=== PATIENT | male | born 1975 | race Caucasian/White ===

== ENCOUNTER → 2020-12-21 13:57 | Outpatient (CLI) | payer OTHER, SELFPAY ==
--- NOTE | 2020-12-21 14:06 | DI.MRI.S_ITS ---
PROCEDURE: MR ELBOW LT W CON INDICATIONS: Strain of muscle, fascia and tendon of other parts TECHNIQUE: Noncontrast coronal proton density fast spin echo and T2 fast spin echo with fat saturation, axial and sagittal T1 spin echo and T2 fast spin echo with fat saturation through the elbow. COMPARISON: None. FINDINGS: Image quality: Excellent. Lateral structures: The lateral ulnar collateral ligament and radial collateral ligament both appear intact. The overlying common extensor tendon appears mildly thickened with T2 hyperintense signal change. Medial structures: The ulnar collateral ligament is not well seen in keeping with rupture. There is associated heterogeneous signal and edema in its expected location. The overlying common flexor tendon appears mildly thickened with T2 hyperintense signal changes. The ulnar nerve appears normal in size and signal within the cubital tunnel. Anterior structures: Brachialis tendon appears intact. There is complete rupture of the biceps tendon which is retracted approximately 8.9 cm cephalad to the radial attachment. There is extensive adjacent fluid and soft tissue edema. There is also circumferential subcutaneous cellulitis. The median and radial neurovascular bundles appear normal; no focal muscle atrophy to suggest nerve impingement. Posterior structures: The conjoint triceps tendon from the long and lateral heads appears intact. The medial head of the triceps tendon also appears normal, with direct muscle insertion onto the olecranon. No olecranon bursal fluid. Bone and cartilage: No bone marrow contusions or fractures. No osteochondral injuries. IMPRESSION: Complete rupture of the biceps tendon with marked cephalad retraction of the tendon stump as detailed above. Rupture of the ulnar collateral ligament Tendinopathy involving the common extensor and flexor tendons raising the possibility of medial and lateral epicondylitis syndrome although this finding is technically age indeterminate. Dictated by: Herberth Villeda M.D. on 12/21/2020 at 16:20 Approved by: Herberth Villeda M.D. on 12/21/2020 at 16:26
== END ==
PROVIDERS: Referring Provider Orthopaedic Surgery; Visit Provider Orthopaedic Surgery
DX: S46.212A Strain of muscle, fascia and tendon of other parts of biceps, left arm, initial encounter (principal); S53.32XA Traumatic rupture of left ulnar collateral ligament, initial encounter; X58.XXXA Exposure to other specified factors, initial encounter
CPT/HCPCS: 73221

== ENCOUNTER 2023-11-24 08:15 | Emergency (ER) | payer BC, SELFPAY ==
[2023-11-24] VITALS (7 sets, daily range): BP systolic 164–197; BP diastolic 90–106; PULSE 85–115; RESP 16; TEMP 36.9; O2SAT 95–99; BMI 30.8
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
--- NOTE | 2023-11-24 08:29 | DI.CT.S_ITS ---
PROCEDURE: CT KIDNEY URETER BLADDER (KUB) INDICATIONS: right flank/back pain chronic but wors, hx L nephrect for ca TECHNIQUE: Axial sections were acquired from the lung bases to the pubic symphysis. Coronal and sagittal reformats were performed. For radiation dose reduction, the following was used: automated exposure control, adjustment of mA and/or kV according to patient size. COMPARISON: None. FINDINGS: Image quality: Diagnostic. Lower Chest: No significant findings. URINARY: Right Kidney: No stones or hydronephrosis. Right Ureter: No hydroureter. Left Kidney: Absent. Bladder: Normal wall thickness. No stones. ABDOMEN: Liver: No contour-deforming solid mass. Gallbladder: No radiopaque gallstones or wall thickening. Biliary ducts: No biliary dilation. Pancreas: No ductal dilation. Spleen: Size is within normal limits. Adrenal Glands: No adrenal nodules. Stomach and Bowel: Normal colonic caliber, without significant wall thickening. Colonic diverticulosis without evidence of diverticulitis. Normal appendix. Peritoneum: No abnormal intraperitoneal fluid. No free air. Ventral Wall: No hernia. Abdominal Nodes: No enlarged retroperitoneal or mesenteric lymph nodes. Vessels: Aorta and inferior vena cava are normal in size. PELVIS: Pelvic Organs: Unremarkable. Pelvic Nodes: Unremarkable. Miscellaneous: No inguinal hernias are seen. Bones: Degenerative disc disease of the lumbar spine. Transitional L5 vertebrae. IMPRESSION: No obstructing stones or hydronephrosis. Left nephrectomy. Normal appendix. Colonic diverticulosis without evidence of diverticulitis. Normal gallbladder. Dictated by: Antwon Shukla M.D. on 11/24/2023 at 8:53 Approved by: Antwon Shukla M.D. on 11/24/2023 at 8:56
[2023-11-24 08:42] LABS: Add Manual Diff / Slide Review NO; Basophils Absolute Auto 200 /uL (0-100); Basophils Percent Auto 1.6 % (0-2); Eosinophils Absolute Auto 500 /uL (0-450); Eosinophils Percent Auto 4.2 % (2-4); Hematocrit 50.7 % (41-53); Hemoglobin 17.2 g/dL (13.5-17.5); Lymphocytes Absolute Auto 2800 /uL (1100-4500); Lymphocytes Percent Auto 23.4 % (25-40); Mean Corpuscular Hemoglobin 29.1 PG (26-34); Mean Corpuscular Volume 85.7 fL (80-100); Monocytes Absolute Auto 700 /uL (0-900); Monocytes Percent Auto 5.6 % (3-14); Neutrophils Absolute Auto 7700 /uL (1500-7000); Neutrophils Percent Auto 65.2 % (50-75); Platelet Count 354 X10^3/uL (150-400); Red Blood Cell Count 5.92 X10^6/uL (4.5-5.9); Red Cell Distribution Width 14.8 % (11.6-14.8); White Blood Cell Count 11.8 X10^3/uL (4.5-11.0)
[2023-11-24 08:53] LABS: Alanine Aminotransferase 63 IU/L (<50); Albumin 4.6 g/dL (3.5-5.0); Albumin Globulin Ratio 1.5 (1.0-2.8); Alkaline Phosphatase 36 U/L (38-126); Aspartate Aminotransferase 62 IU/L (17-59); BUN Creatinine Ratio 8.8 (6-22); Bilirubin Total 1.1 mg/dL (0.2-1.3); Blood Urea Nitrogen 15 mg/dL (9-20); Calcium 9.3 mg/dL (8.4-10.2); Carbon Dioxide 23 mmol/L (22-32); Chloride 108 mmol/L (98-107); Estimated Glomerular Filt Rate 49 mL/min (>60); Glucose 115 mg/dL (70-100); HEMOLYSIS 36 (0-50); Lipase 166 U/L (23-300); Potassium 5.1 mmol/L (3.4-5.1); Sodium 138 mmol/L (137-145); Total Protein 7.6 g/dL (6.3-8.2)
[2023-11-24 09:19] LABS: Urine Volume 10mL (spun)
[2023-11-24 09:21] LABS: Bacteria Urine Occasional (0-1); Culture Indicated Urine Cult Not Indicated; RBC Urine 1-5/HPF (0-5/HPF); Squamous Epithelial Cell Urine 0-1 /HPF (0-5/HPF); WBC Urine 0-1/HPF (0-5/HPF)
== END 2023-11-24 09:50 | disposition home or self-care (01) ==
PROVIDERS: Emergency Provider Emergency Medicine
DX: M54.50 Low back pain, unspecified (principal); R79.89 Other specified abnormal findings of blood chemistry
CPT/HCPCS: 36415; 74176; 80053; 81003; 81015; 83690; 85025; 99284

== ENCOUNTER 2024-07-15 11:42 | Emergency (ER) | payer BC, SELFPAY ==
[2024-07-15] VITALS (8 sets, daily range): BP systolic 133–148; BP diastolic 78–94; PULSE 76–95; RESP 14–18; TEMP 36.9; O2SAT 95–98; BMI 31.5
--- NOTE | 2024-07-15 11:58 | EKG_ITS ---
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
[2024-07-15] MEDS: PANTOPRAZOLE 40 MG VIAL 80 MG IV (12:14)
[2024-07-15 12:17] LABS: Add Manual Diff / Slide Review NO; Basophils Absolute Auto 200 /uL (0-100); Basophils Percent Auto 1.7 % (0-2); Eosinophils Absolute Auto 200 /uL (0-450); Eosinophils Percent Auto 2.2 % (2-4); Hematocrit 46.2 % (41-53); Hemoglobin 15.8 g/dL (13.5-17.5); Lymphocytes Absolute Auto 2300 /uL (1100-4500); Mean Corpuscular HGB Conc 34.1 % (30-36); Monocytes Absolute Auto 700 /uL (0-900); Monocytes Percent Auto 6.5 % (3-14); Neutrophils Absolute Auto 7600 /uL (1500-7000); Neutrophils Percent Auto 68.6 % (50-75); Platelet Count 340 X10^3/uL (150-400); Red Blood Cell Count 5.44 X10^6/uL (4.5-5.9); Red Cell Distribution Width 14.1 % (11.6-14.8)
--- NOTE | 2024-07-15 12:20 | ED.GIBLEED ---
HPI - GI Bleed General Chief complaint: GI Bleed Stated complaint: per patient bleeding internally after procedure Time Seen by Provider: 07/15/24 12:06 Source: patient Mode of arrival: Ambulatory History of Present Illness HPI Narrative: Patient here with [place]. Patient has had rectal bleeding since his colonoscopy at [facility] yesterday. Had his 1st colonoscopy yesterday. He states there were polyps removed. After procedure yesterday did notice some blood in the bowel movements. However he continued to have more blood in bowel movements since then. No dizziness no syncope no shortness a breath. Denies abdominal pain. Patient is not on any blood thinners or ibuprofen or aspirin. Related Data Previous Rx's Medication Instructions Recorded cyclobenzaprine 10 mg tablet 10 mg PO TID PRN muscle spasm #10 11/24/23 tabs Allergies Allergy/AdvReac Type Severity Reaction Status Date / Time No Known Drug Allergies Allergy Verified 11/24/23 09:10 Review of Systems Review of Systems Narrative: GENERAL: Negative chills, fatigue, malaise, fever, sweats. HEENT: Negative sinus pain, ear pain, sore throat RESPIRATORY: Negative dyspnea, cough CARDIOVASCULAR: Negative chest pain, palpitations GASTROINTESTINAL: Negative vomiting, nausea, abdominal pain, positive GI bleed : Negative dysuria, frequency, hematuria MUSCULOSKELETAL: Negative muscle or bony pain SKIN: Negative rash, skin lesions NEUROLOGIC: Negative weakness, numbness PSYCH: Positive anxiety ROS Unobtainable: All systems reviewed & are unremarkable except as noted in HPI and below Patient History Social History Smoking Status: Current every day smoker Smoking Status: Current every day smoker tobacco type: cigarettes alcohol intake frequency: a few times a week Exam Narrative Exam Narrative: GENERAL: in no distress, not toxic not dyspneic HEAD: Normocephalic. EYES: Pupils equal round inked conjunctiva ENT: Mucous membranes moist. NECK: Trachea midline. CARDIOVASCULAR: Regular rate and rhythm brisk cap refills on the fingers. RESPIRATORY: Clear to auscultation. Breath sounds equal bilaterally. No wheezes, rales, or rhonchi. GASTROINTESTINAL: Abdomen soft, non-tender, abdomen is soft flat nontender no peritoneal signs no guarding no rebound. No pain out of portion exam. Bowel sounds are present.. Patient denies any active bleeding at this time. We will hold on rectal exam at this time. EXTREMITIES: No gross deformities. BACK: No flank tenderness. NEURO: AOx4. Clear speech SKIN: Warm and dry skin is warm soft and pink. No pallor. PSYCH: Not anxious, is cooperative Initial Vital Signs Initial Vital Signs: Vital Signs Temperature 98.4 F 07/15/24 11:49 Pulse Rate 92 H 07/15/24 11:49 Respiratory Rate 14 07/15/24 11:49 Blood Pressure 148/91 H 07/15/24 11:49 Pulse Oximetry 98 07/15/24 11:49 Oxygen Delivery Method Room Air 07/15/24 11:49 Course Orders Ordered: Discontinued Medications Sodium Chloride (Normal Saline 0.9%) 500 mls @ 1,000 mls/hr IV BOLUS ONE Stop: 07/15/24 12:48 Last Infusion: 07/15/24 13:34 Dose: Infused Documented By: Admin: 07/15/24 12:40 Dose: 1,000 mls/hr Documented By: TYLOR Lorazepam (Lorazepam 2 Mg/Ml Inj) 1 mg IV NOW ONE Stop: 07/15/24 12:22 Last Admin: 07/15/24 12:39 Dose: 1 mg Documented By: TYLOR Ondansetron HCl (Ondansetron 4 Mg/2 Ml Inj) 4 mg IV NOW PRN PRN Reason: Nausea And Vomiting Ondansetron HCl (Ondansetron 4 Mg Odt) 4 mg SL NOW PRN PRN Reason: Nausea And Vomiting Pantoprazole Sodium (Pantoprazole 40 Mg Vial) 80 mg IV NOW ONE Stop: 07/15/24 11:52 Last Admin: 07/15/24 12:14 Dose: 80 mg Documented By: TYLOR Vital Signs Vital signs: Vital Signs - 8 hr 07/15/24 11:49 07/15/24 12:02 07/15/24 12:02 Temperature 98.4 F Pulse Rate 92 H 95 H Respiratory Rate 14 Blood Pressure 148/91 H 133/94 H Pulse Oximetry 98 95 Oxygen Delivery Method Room Air 07/15/24 12:30 07/15/24 12:30 07/15/24 13:00 Temperature Pulse Rate 86 83 Respiratory Rate 17 Blood Pressure 136/83 Pulse Oximetry 97 97 Oxygen Delivery Method 07/15/24 13:02 07/15/24 13:02 Temperature Pulse Rate 83 Respiratory Rate Blood Pressure 143/78 H Pulse Oximetry 98 Oxygen Delivery Method Room Air MDM - GI Bleed Lab Data 07/15/24 12:01 07/15/24 12:01 Labs: Lab Results 07/15/24 Range/Units 12:01 WBC 11.0 (4.5-11.0) X10^3/uL RBC 5.44 (4.5-5.9) X10^6/uL Hgb 15.8 (13.5-17.5) g/dL Hct 46.2 (41-53) % MCV 85.0 (80-100) fL MCH 29.0 (26-34) PG MCHC 34.1 (30-36) % RDW 14.1 (11.6-14.8) % Plt Count 340 (150-400) X10^3/uL Neut % (Auto) 68.6 (50-75) % Lymph % (Auto) 21.0 L (25-40) % [place] % (Auto) 6.5 (3-14) % Eos % (Auto) 2.2 (2-4) % Baso % (Auto) 1.7 (0-2) % Neut # (Auto) 7600 H (1143-5230) /uL Lymph # (Auto) 2300 (4838-3454) /uL [place] # (Auto) 700 (0-900) /uL Eos # (Auto) 200 (0-450) /uL Baso # (Auto) 200 H (0-100) /uL PT 10.7 (9.4-12.5) SECONDS INR 0.9 (0.9-1.3) APTT 36 (25.1-36.5) SECONDS Sodium 139 (137-145) mmol/L Potassium 4.0 (3.4-5.1) mmol/L Chloride 106 (98-107) mmol/L Carbon Dioxide 23 (22-32) mmol/L BUN 18 (9-20) mg/dL Creatinine 1.42 H (0.66-1.25) mg/dL Estimated GFR > 60 (>60) mL/min BUN/Creatinine Ratio 12.7 (6-22) Glucose 111 H (70-100) mg/dL Calcium 9.4 (8.4-10.2) mg/dL Total Bilirubin 0.5 (0.2-1.3) mg/dL AST 54 (17-59) IU/L ALT 85 H (<50) IU/L Alkaline Phosphatase 53 (38-126) U/L Total Protein 7.0 (6.3-8.2) g/dL Albumin 4.4 (3.5-5.0) g/dL Globulin 2.6 (1.7-4.1) g/dL Albumin/Globulin Ratio 1.7 (1.0-2.8) Blood Type O Positive Antibody Screen Negative Urine Dip Bedside Urine Glucose Negative Bedside Urine Bilirubin - Negative Bedside Urine Ketone - Negative Urine Specific [place] 1.015 Bedside Urine Occult Blood - Negative Bedside Urine pH 5.5 Bedside Urine Protein - Negative Bedside Urine Urobilinogen - Negative Bedside Urine Nitrite - Negative Bedside Urine Leukocytes - Negative Esterase Imaging Data CT scan - abdomen/pelvis: Radiologist's Impression: [address] [address] [address] Scan Report Signed Patient: Archie Machuca MR#: [id number] : 1975 Acct:[id number] Age/Sex: 49 / M Date of Service: 07/15/24 Loc: ED Accession Number: [id number] Procedure: CT angio Abd/Pel GI Bleed Ordering Provider: Francois Vera MD PROCEDURE: CT ANGIO ABD/PEL GI BLEED INDICATIONS: GI bleed/recent colonoscopy TECHNIQUE: Prior to and following the administration of intravenous contrast, 2.5 mm thick sections acquired from the diaphragm to the symphysis. 10 mm maximum-intensity projection (MIP) reformats were then acquired. For radiation dose reduction, the following was used: automated exposure control. COMPARISON: [facility], CT, CT KIDNEY URETER BLADDER (KUB), 11/24/2023, 8:32. FINDINGS: Image Quality: Diagnostic. Abdominal aorta: No aortic aneurysm or evidence of acute aortic syndrome. Mesenteric arteries: Patent without hemodynamically significant stenosis. Renal arteries: Patent without hemodynamically significant stenosis. OTHER: Lower Chest: No significant findings. Liver: No solid mass. Gallbladder: No radiopaque gallstones or wall thickening. Biliary ducts: No biliary dilation. Pancreas: No ductal dilation. Spleen: Size is within normal limits. Adrenal Glands: No adrenal nodules. Kidneys and Ureters: Left kidney is surgically absent. No right-sided hydronephrosis. No right renal solid mass. No complex renal cystic lesion which requires follow up. Stomach and Bowel: Normal colonic caliber, without significant wall thickening. Scattered colonic diverticuli without evidence of diverticulitis. The appendix is normal. Peritoneum: No abnormal intraperitoneal fluid. No free air. Ventral Wall: No hernia. Abdominal Nodes: No retroperitoneal or mesenteric adenopathy by size criteria. Vessels: Aorta and inferior vena cava are normal in size. PELVIS: Pelvic Organs: Unremarkable. Bladder: Unremarkable. Pelvic Nodes: No enlarged lymph nodes. Miscellaneous: No inguinal hernias are seen. Bones: No aggressive osseous abnormality. Spine degenerative disc disease and facet arthropathy. IMPRESSION: Sided GI bleed not identified. No active hemorrhage. No acute disease process. Colonic diverticulosis without evidence of diverticulitis. Dictated by: Stacy Olson MD, PhD on 07/15/2024 at 12:55 Approved by: Stacy Olson MD, PhD on 07/15/2024 at 13:02 [facility] Narrative Medical decision making narrative: Patient here with fiancee. Patient has had rectal bleeding since his colonoscopy at [facility] yesterday. Had his 1st colonoscopy yesterday. He states there were polyps removed. After procedure yesterday did notice some blood in the bowel movements. However he continued to have more blood in bowel movements since then. No dizziness no syncope no shortness a breath. Denies abdominal pain. Patient is not on any blood thinners or ibuprofen or aspirin. After history and exam, CBC CMP PT INR PTT type and screen CT abdomen pelvis normal saline MDM Medical records reviewed: No recent visit here for this complaint Differential considered: Includes but not limited to postoperative bleed bowel perforation Lab Test results independently reviewed as above. Pertinent findings: WBC 11.0 hemoglobin 15.8 hematocrit 46.2 platelets 340 INR 0.9 BUN 18 creatinine 1.42 Independently reviewed EKG normal sinus rhythm rate [address] elevation Imaging studies independently reviewed: CT abdomen pelvis no acute bleed Consultations: 1:52 p.m.. Spoke with patient's surgeon/telecom sales consultant, Dr. Trevino from [facility]. Patient can be discharged home. Follow up this week in the office if needed. Bleeding is expected sometimes with polyp biopsy. Treatments: Normal saline Protonix lorazepam for anxiety Re-evaluations: 2:00 p.m.. Updated patient results. Exam/laboratory studies imaging studies reassuring. I did contact his telecom sales consultant. Postop bleeding can occur with polyp biopsy. Return precautions reviewed with patient. Worsening symptoms for dizziness or pain. Discussion: Appropriate for discharge home exam is reassuring. Return precautions reviewed patient. Nontoxic at discharge. Vital signs and laboratory studies are reassuring and stable. Renal function at baseline. Patient does have history of 1 kidney. However risks and benefits reviewed with him and for bleeding CT IV contrast was used. Diagnosis: Postoperative bleed Discharge Plan Departure Patient Disposition: Home Clinical Impression: Post-operative haemorrhage Qualifiers: Surgical complication system/body Area: digestive system Procedure type: digestive system Qualified Code(s): K91.840 - Postprocedural hemorrhage of a digestive system organ or structure following a digestive system procedure Instructions: Gastrointestinal Bleeding, DI for Diverticulosis Activity Restrictions/Additional Instructions: Your exam and laboratory studies and imaging studies are reassuring. Your telecom sales consultant was contacted today. Please call the office for updates this week. Return immediately if worse if any questions or concerns of increased bleeding or any dizziness or any abdominal pain. Please do not take ibuprofen or aspirin Prescriptions: No Action cyclobenzaprine 10 mg tablet 10 mg PO TID PRN (Reason: muscle spasm) Qty: 10 0RF Stand Alone Forms: Patient Portal/API/Survey
[2024-07-15 12:24] LABS: INR 0.9 (0.9-1.3); Prothrombin Time 10.7 SECONDS (9.4-12.5)
[2024-07-15 12:27] LABS: PTT Partial Thromboplastin Tim 36 SECONDS (25.1-36.5)
[2024-07-15 12:29] LABS: Alanine Aminotransferase 85 IU/L (<50); Albumin 4.4 g/dL (3.5-5.0); Albumin Globulin Ratio 1.7 (1.0-2.8); Alkaline Phosphatase 53 U/L (38-126); Aspartate Aminotransferase 54 IU/L (17-59); BUN Creatinine Ratio 12.7 (6-22); Bilirubin Total 0.5 mg/dL (0.2-1.3); Blood Urea Nitrogen 18 mg/dL (9-20); Calcium 9.4 mg/dL (8.4-10.2); Carbon Dioxide 23 mmol/L (22-32); Chloride 106 mmol/L (98-107); Estimated Glomerular Filt Rate > 60 mL/min (>60); Globulin 2.6 g/dL (1.7-4.1); Glucose 111 mg/dL (70-100); HEMOLYSIS < 15 (0-50); Sodium 139 mmol/L (137-145)
[2024-07-15] MEDS: LORazepam 2 MG/ML INJ 1 MG IV (12:39)
[2024-07-15] MEDS: SODIUM CHLORIDE 0.9% 500 ML 1000 ML IV (12:40)
== END 2024-07-15 14:08 | disposition home or self-care (01) ==
PROVIDERS: Emergency Provider Emergency Medicine
DX: K91.840 Postprocedural hemorrhage of a digestive system organ or structure following a digestive system procedure (principal)
CPT/HCPCS: 36415; 74174; 80053; 81003; 85025; 85610; 85730; 86850; 86900; 86901; 93005; 93010; 96361; 96374; 96375; 99284; J2060; J2470; Q9967